=== PATIENT | male | born 1980 | race Caucasian/White ===

== ENCOUNTER → 2017-04-03 | Outpatient (CLI) | payer OTHER ==
[~2017-04-03] MED LIST: CALC600T21 PO; CELE-19 PO; COLA100C3 PO; DOCU10CA PO; GABA-283 PO; GABA600T PO; MULTCAP PO; NEXI40CA PO; PERC5TAB6 PO; PERCOCET PO; ROBA500T PO; TYLE325T5 PO; VITA500C24 PO; ZANA4TAB PO
--- NOTE | 2017-04-03 10:18 | REP ---
Chest two views HISTORY: Cough Comparison: None The lungs are clear. The heart is normal in size. The pulmonary vasculature is normal in appearance. The bony structure is intact. IMPRESSION: No acute disease. Signed by Tito Woods MD 04/03/2017 10:10 A
== END ==
LOC: M SMT 09:59
PROVIDERS: ATTEND Nurse Practitioner Adult Health
DX: R05 Cough (principal)

== ENCOUNTER → 2017-07-29 | Outpatient (CLI) | payer OTHER ==
[~2017-07-29] MED LIST changes: -CALC600T21 PO; +CALC600T60 PO; -CELE-19 PO; +CELE1CAP4 PO; -COLA100C3 PO; +COLA100C5 PO; +METHACHOLINE KIT (J7674) INH ONE; +PERC5TAB12 PO; -PERC5TAB6 PO
--- NOTE | 2017-07-29 09:38 | PFTRPT ---
Tech: Ajit WHIPPLE RRT Age: 37 Sex: Male Race: Height: 70.00 Inches Weight: 223.00 Lbs BSA: 2.19 Diagnosis: R05 METHACHOLINE CHALLENGE REPORT: ORDERING PROVIDER: JAS Miller DATE OF SERVICE: 07/29/17 INTERPRETATION: The study was of excellent technical quality. Under protocol, methacholine was administered. Even after a maximal dose of 25 mg (188.875 CDUs) of methacholine , no provocation dose was ever achieved. Flow rates did return to baseline post bronchodilator administration. IMPRESSION: Negative methacholine challenge study. MTDD
== END ==
LOC: M CARPUL 08:38
PROVIDERS: ATTEND Nurse Practitioner Adult Health
DX: R05 Cough (principal)
CPT/HCPCS: 94070; J7674